=== PATIENT | female | born 1995 | race Caucasian/White ===

== ENCOUNTER 2023-12-17 16:32 | Outpatient (CLI) | payer BC ==
[2023-12-17 17:57] VITALS: BP 130/86; PULSE 117; RESP 18; TEMP 96.9
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
== END 2023-12-17 17:45 | disposition home or self-care (01) ==
LOC: FBPOP 16:32
PROVIDERS: ATTEND Obstetrics & Gynecology Obstetrics
DX: Z04.1 Encounter for examination and observation following transport accident (principal); O9A.213 Injury, poisoning and certain other consequences of external causes complicating pregnancy, third trimester; Z3A.38 38 weeks gestation of pregnancy; Z88.1 Allergy status to other antibiotic agents; V89.2XXA Person injured in unspecified motor-vehicle accident, traffic, initial encounter; Y92.410 Unspecified street and highway as the place of occurrence of the external cause
CPT/HCPCS: 59025; 99213

== ENCOUNTER 2024-01-03 12:11 | Inpatient (IN) | payer BC ==
[2024-01-03 13:23] LABS: Basophils # (A) 0.1 k/uL (0-0.2); Basophils % (A) 1 %; Eosinophils # (A) 0.2 k/uL (0-0.7); Eosinophils % (A) 2 %; HCT 36.2 % (34.0-46.0); HGB 12.4 gm/dL (11.4-16.0); Lymphocytes # (A) 2.2 k/uL (1.0-4.8); Lymphocytes % (A) 22 %; MCH 32.1 pg (25.0-35.0); MCHC 34.4 g/dL (31.0-37.0); MCV 93.4 fL (80.0-100.0); Mean Platelet Volume 12.1; Monocytes # (A) 0.4 k/uL (0-1.0); Monocytes % (A) 4 %; Neutrophils # (A) 6.9 k/uL (1.3-7.7); Neutrophils % (A) 70 %; Platelet Count 132 k/uL (150-450); RBC 3.87 m/uL (3.80-5.40); RDW 13.1 % (11.5-15.5)
[2024-01-03 13:24] LABS: Appearance,Urine Clear (Clear); Bilirubin,Urine Negative (Negative); Blood,Urine Negative (Negative); Color,Urine Yellow; Glucose,Urine (UA) Negative (Negative); Ketones,Urine Negative (Negative); Leukocyte Esterase,Urine Small (Negative); Mucus,Urine Occasional /hpf; Nitrite,Urine Negative (Negative); Protein,Urine Trace (Negative); RBC,Urine 1 /hpf (0-5); Specific Gravity,Urine 1.022 (1.001-1.035); Squamous Epithelial Cell,Urine 5 /hpf (0-4); Urobilinogen,Urine <2.0 mg/dL (<2.0); WBC,Urine 14 /hpf (0-5)
[2024-01-03 13:43] LABS: Creatinine,Urine Random 151.9 mg/dL
[2024-01-03 13:45] LABS: ALT 14 U/L (4-34); AST 21 U/L (14-36); African American GFR (CKD) >90 (>60 ml/min/1.73 sqM); Blood Urea Nitrogen 7 mg/dL (7-17); LDH 152 U/L (120-246); Non-African American GFR(CKD) >90 (>60 ml/min/1.73 sqM); Uric Acid 5.6 mg/dL (3.7-7.4)
--- NOTE | 2024-01-03 14:08 | P.MSEPDOC ---
Presenting Problems - Arrival Data Date of Arrival on Unit: 01/03/24 Time of Arrival on Unit: 12:10 Mode of Transport: Ambulatory - Complaint OB-Reason for Admission/Chief Complaint: Possible Onset of Labor Comment: contractions irregular for the past few hours and bloody mucous Medical History - Information : 1 Para: 0 Term: 0 : 0 Abortions: Spontaneous or Elective: 0 Number of Living Children: 0 - Gestational Age Gestational Age by BRADLEY (wks/days): 40 Weeks and 3 Days Review of Systems - Review of Systems Constitutional: No problems Breast: No problems ENT: No problems Cardiovascular: No problems Respiratory: No problems Gastrointestinal: No problems Genitourinary: No problems Musculoskeletal: No problems Neurological: No problems Skin: No problems Vital Signs - Temperature Temperature: 97.2 F Temperature Source: Temporal Artery Scan - Pulse Right Brachial Pulse Rate: 103 Pulse Assessment Method: Automatic Cuff - Respirations Respiratory Rate: 18 Oxygen Delivery Method: Room Air - Blood Pressure Right Arm Blood Pressure: 130/96 Blood Pressure Mean: 107 Blood Pressure Source: Automatic Cuff Medical Screen Scoring - Cervical Exam Dilation (cm): 0.5 Effacement (%): 50 Station: -3 Membranes: Intact - Uterine Contractions Frequency From (mins): 3 Frequency To (mins): 7 Duration From (seconds): 40 Duration To (seconds): 70 Intensity: Mild Resting: Soft to palpation - Assessment - Baby A Baseline FHR: 130 Heart Rate - NICHD Category: Category I (Normal) NST: Reactive Physician Notification - Physician Notified Physician Notified Date: 01/03/24 Physician Notified Time: 12:45 Physician: Rbeekah Thacker Order Received: Yes - Notification Comment Comment: Orders given to Homa Junior RN for labs Maternal Triage Index - Maternal Triage Index Presenting for scheduled procedure w/no complaint: No - Stat/Priority 1 Stat Priority 1: No - Urgent/Priority 2 Urgent Priority 2: No - Prompt/Priority 3 Prompt Priority 3: No - Non-Urgent/Priority 4 Non-Urgent Priority 4: Yes Criteria Met for Priority 4: contractions every 3-7 min and bloody mucous at home Disposition - Disposition OB Disposition: Discharge to home I agree with the RN Medical Screening Exam: Yes Physician's MSE Comment: I have neither seen nor examined the patient Case reviewed; plan agreed upon as documented in EMR&OBIX.: Yes Diagnosis: MATERNAL CARE FOR PROBLEM, UNSP, THIRD * DO NOT USE *
[2024-01-03] MEDS ORDERED: TRANEXAMIC 1,000 MG/100ML-NACL 1,000 MG in EMPTY BAG 1 BAG IV PRN (14:40)
[2024-01-03] MEDS ORDERED: miSOPROStoL 200 MCG TAB PO PRN (14:40)
[2024-01-03] MEDS ORDERED: OXYTOCIN 10 UNIT/ML 1 ML VIAL IM PRN (14:40)
[2024-01-03] MEDS ORDERED: LIDOCAINE 0.5% (PF) 5 MG/ML (50 ML SDV) SQ PRN (14:40)
[2024-01-03] MEDS ORDERED: TERBUTALINE 1 MG/ML VIAL SQ PRN (14:40)
[2024-01-03] MEDS ORDERED: METHYLERGONOVINE 0.2 MG/ML 1 ML AMP IM PRN (14:40)
[2024-01-03] MEDS ORDERED: CARBOPROST TROMETHAMINE 250 MCG/ML 1 ML AMP IM PRN (14:40)
--- NOTE | 2024-01-03 15:13 | P.HPOB ---
History of Present Illness H&P Date: 01/03/24 Chief Complaint: Contractions, leakage of fluid Ms. Nuñez is a 28 year old at at 40 weeks and 3 days with EDC of 12/31/2023 by LMP consistent with 8 week US who presents to L&D with regular, painful contractions. The patient was checked and found to be closed, thick, and high on two checks an hour apart. Her first blood pressure was also noted to be mildly elevated at 130/96. All subsequent blood pressures were normotensive. PIH labs were within normal limits and urine P:C was 0.03. After lab work had resulted, the patient had spontaneous rupture of membranes for clear amniotic fluid and an amnisure test was positive. The has been otherwise co mplicated by a maternal history of asthma for which she follows with pulmonology. The fetus is estimated to be 8 pounds and 12 ounces (approximately 75%ile) by a 36 week growth ultrasound. work-up: blood type A positive, antibody screen negative, rubella immune, VDRL non-reactive, HBsAg negative, HIV negative, HCV Ab negative, gonorrhea negative, chlamydia negative, 1 hour GTT wnl, GBS POSITIVE. s/p Tdap 11/05/2023. Past Medical History History of Any Multi-Drug Resistant Organisms: None Reported Smoking Status: Never smoker Medications and Allergies Home Medications Medication Instructions Recorded Confirmed Type Beclomethasone Dipropionate [Qvar 1 puff INHALATION DAILY 01/03/24 01/03/24 History 40 mcg Redihaler] Vit No.179/Iron/Folic 1 tab PO DAILY 01/03/24 01/03/24 History [ Tablet] Allergies Allergy/AdvReac Type Severity Reaction Status Date / Time azithromycin AdvReac Rash/Hives Verified 01/03/24 12:56 Exam Vital Signs Temp Pulse Resp BP 01/03/24 14:08 97.2 F L 103 H 18 130/96 01/03/24 12:52 97.2 F L 103 H 18 130/96 Intake and Output 01/02/24 01/03/24 01/03/24 22:59 06:59 14:59 Other: Weight 95.708 kg Focused physical exam is performed. This is a healthy-appearing in no apparent distress. Breathing is non-labored. Abdomen is gravid and non-tender. Cervical exam is closed, thick, and high. Clear amniotic fluid is noted. Extremities non-tender and non-edematous. heart tones are Category I and tocometer is graphing contractions every 2-5 minutes. Results Result Diagrams: 01/03/24 13:08 01/03/24 13:08 Abnormal Lab Results - Last 24 Hours (Table) 01/03/24 01/03/24 01/03/24 Range/Units 13:07 13:08 13:08 Plt Count 132 L (150-450) k/uL Creatinine 0.49 L (0.52-1.04) mg/dL Urine Protein Trace H (Negative) Ur Leukocyte Esterase Small H (Negative) Urine WBC 14 H (0-5) /hpf Ur Squamous Epith Cells 5 H (0-4) /hpf Urine Mucus Occasional H (None) /hpf Assessment and Plan Assessment: 28 year old at 40 weeks and 3 days in labor with spontaneous rupture of membranes Plan: Admit, NPO, Penicillin G for GBS positive status, pitocin titrated per protocol, epidural prn, continuous EFM and tocometer, close monitoring of patient. Time with Patient: Less than 30
[2024-01-03] MEDS: PENICILLIN G POTASSIUM 5,000,000 UNIT in DEXTROSE 5% IN WATER 100 ML IVPB STA (15:22)
[2024-01-03] MEDS: LACTATED RINGERS 1,000 ML IV SCH (15:22)
[2024-01-03] MEDS: OXYTOCIN 30 UNITS/500 ML NS 30 UNIT in SALINE 1 500ML.BAG IV SCH (15:30)
[2024-01-03] MEDS ORDERED: FLUTICASONE 50MCG/SPRAY NASAL 16GM EA NOSTRIL PRN (17:40)
[2024-01-03] MEDS: PENICILLIN G POTASSIUM 2,500,000 UNIT in DEXTROSE 5% IN WATER 100 ML IVPB SCH (19:32)
[2024-01-03] MEDS: NALBUPHINE 10 MG/ML (10 ML MDV) IV PRN (20:08)
[2024-01-04] MEDS ORDERED: ROPIVACAINE 5 MG/ML 30 ML VIAL ONE (04:38)
[2024-01-04] MEDS ORDERED: SODIUM CHLORIDE 0.9% 250 ML BAG ONE (04:38)
[2024-01-04] MEDS ORDERED: fentaNYL (PF) 50 MCG/ML 5 ML AMP ONE (04:38)
[2024-01-04] MEDS ORDERED: OXYTOCIN 10 UNIT/ML 1 ML VIAL IM PRN (14:59)
[2024-01-04] MEDS ORDERED: METHYLERGONOVINE 0.2 MG/ML 1 ML AMP IM PRN (14:59)
[2024-01-04] MEDS ORDERED: TRANEXAMIC 1,000 MG/100ML-NACL 1,000 MG in EMPTY BAG 1 BAG IV PRN (14:59)
[2024-01-04] MEDS ORDERED: miSOPROStoL 200 MCG TAB PO PRN (14:59)
[2024-01-04] MEDS ORDERED: CARBOPROST TROMETHAMINE 250 MCG/ML 1 ML AMP IM PRN (14:59)
[2024-01-04] MEDS: CITRIC ACID-SODIUM CITRATE 15 ML CUP PO ONE (15:42)
[2024-01-04] MEDS ORDERED: METHYLERGONOVINE 0.2 MG/ML 1 ML AMP ONE (16:21)
[2024-01-04] MEDS ORDERED: ONDANSETRON 4 MG/2 ML VIAL ONE (16:21)
[2024-01-04] MEDS ORDERED: PROPOFOL 10 MG/ML 20 ML VIAL IV ONE (16:21)
[2024-01-04] MEDS ORDERED: fentaNYL (PF) 50 MCG/ML 2 ML AMP ONE (16:21)
[2024-01-04] MEDS ORDERED: KETOROLAC 15 MG/ML 1 ML VIAL ONE (16:21)
[2024-01-04] MEDS ORDERED: OXYTOCIN 30 UNITS/500 ML NS BAG IV ONE (16:21)
[2024-01-04] MEDS ORDERED: SUCCINYLCHOLINE CHLORIDE 200 MG/10 ML VIAL IV ONE (16:21)
--- NOTE | 2024-01-04 17:47 | P.OP ---
Date of Procedure: 01/04/24 Preoperative Diagnosis: #1. 40-4/7 weeks, labor #2. Prolonged rupture of membranes #3. Arrest of dilation and descent in the active phase of labor #4. Maternal exhaustion Postoperative Diagnosis: Same Procedure(s) Performed: #1. Primary low-transverse section Anesthesia: GETA (Failed epidural bolus) Surgeon: Marty Royal Football Scout #1: Rebekah Thacker Estimated Blood Loss (ml): 1,300 IV fluids (ml): 1,000 Urine output (ml): 200 Pathology: other (Placenta) Condition: stable Disposition: floor Operative Findings: Preoperatively, the patient had had rupture of membranes for greater than 24 hours. Antibiotic prophylaxis was started empirically given her remoteness from delivery. She had had Pitocin augmentation beginning late last evening and ultimately progressed to 6 cm of dilation this morning with the vertex and presentation -3 station. She remained at 6 cm with an adequate contraction pattern for approximately 8 hours with no change in dilation or descent. She additionally was exhausted from the process and requested to proceed to primary low-transverse section. She was taken to the operating room where she was delivered of a viable 8 pound 7 ounce baby girl with Apgars of 9 at 1 minute and 9 at 5 minutes delivered in the occiput anterior position. The placenta was delivered manually, intact, and grossly normal with a grossly normal three- vessel cord. The uterus, tubes, and ovaries were entirely normal to inspection. There was a moderate amount of blood loss secondary to uterine atony which was ultimately made better after a dose of Methergine. Description of Procedure: The patient was prepped and draped in usual fashion after epidural anesthesia was bolused by the anesthesiologist. The epidural was tested on multiple times over the course of approximately 20 to 30 minutes with inadequate analgesia and the decision was made to proceed with general endotracheal anesthesia. After establishing the general endotracheal anesthesia, a Pfannenstiel incision was made and extended into the abdominal cavity without difficulty. The bladder peritoneum was significantly distal to the intended site of incision was left intact. A 2 cm incision was made the transverse plane of the lower uterine segment after the uterus at which time lightly meconium stained fluid was noted which had not been noted earlier. The head was delivered up and through the incision where the nose and mouth were thoroughly suctioned. The cord was doubly clamped, cut, and the passed for resuscitative measures with weight and Apgars as noted above. A segment of cord was doubly clamped, cut, and set aside should cord gases become necessary. The placenta was delivered manually and intact as noted above. Uterus was exteriorized and the anterior cavity swept of any remaining placental or membranous fragments. The margins of the uterine incision were grasped with Huff clamps and the incision was closed in 2 layers. There was a moderate amount of uterine atony occurring at this time leading to a moderate amount of blood loss which was ultimately treated with Methergine effectively. The 2 layer closure consisted of a first layer of 0 chromic catgut in a running locking stitch followed by a running imbricating stitch of 0 chromic catgut, each from margin to margin. The posterior cul-de-sac was suctioned with a guard followed by laparotomy sponge and the uterus was replaced within the abdominal cavity.. The gutters were swept of any remaining blood, fluid, or clot. Examination of the surgical field demonstrated some bleeding at the right ankle which was made hemostatic with a single [id number] stitch of 0 chromic catgut. Any small points of bleeding were made hemostatic with the Bovie. Once hemostasis was established, the parietal peritoneum was loosely reapproximated and the layer of muscles examined and found to be hemostatic. The fascia was closed with 2 running stitches of 0 Vicryl proceeding from the lateral margins to the midpoint. The subcutaneous tissues were irrigated, made hemostatic with the Bovie, and reapproximated with a running stitch of 3-0 plain catgut. The skin was reapproximated with a running subcuticular stitch of 4-0 Vicryl followed by half-inch Steri-Strips placed with Mastisol. Quantitative blood loss for the case was 1300 mL. There were no complications aside from the short-term intraoperative atony leading to some excessive blood loss at the time. All sponge, instrument, and needle counts were correct. The patient tolerated the procedure well and proceeded to the recovery room in stable condition. Both mother and are resting comfortably in recovery.
[2024-01-04] MEDS ORDERED: diphenhydrAMINE 50 MG/ML 1 ML VIAL IVP PRN ×2 (17:53)
[2024-01-04] MEDS ORDERED: METOCLOPRAMIDE 5 MG/ML 2 ML VIAL IVP PRN (17:53)
[2024-01-04] MEDS ORDERED: KETOROLAC 15 MG/ML 1 ML VIAL IVP PRN (17:53)
[2024-01-04] MEDS ORDERED: diphenhydrAMINE 50 MG CAP PO PRN (17:53)
[2024-01-04] MEDS ORDERED: ZOLPIDEM 5 MG TAB PO PRN (17:53)
[2024-01-04] MEDS ORDERED: ONDANSETRON 4 MG/2 ML VIAL IVP PRN (17:53)
[2024-01-04] MEDS ORDERED: NALOXONE 0.4 MG/ML 1 ML VIAL IV PRN (17:53)
[2024-01-04] MEDS ORDERED: LANOLIN CREAM 1 GM TUBE TOPICAL PRN (17:53)
[2024-01-04] MEDS ORDERED: diphenhydrAMINE 25 MG CAP PO PRN (17:53)
[2024-01-04] MEDS ORDERED: SIMETHICONE 80 MG CHEWABLE PO PRN (17:53)
[2024-01-04] MEDS ORDERED: OXYTOCIN 30 UNITS/500 ML NS 30 UNIT in SALINE 1 500ML.BAG IV SCH (18:00)
[2024-01-04] MEDS: ALBUTEROL HFA INHALER INHALATION PRN (18:15)
[2024-01-04] MEDS: SENNOSIDES-DOCUSATE SODIUM 1 EACH TAB PO SCH (20:03)
[2024-01-04] MEDS: ACETAMINOPHEN TAB 500 MG TAB PO SCH (21:06)
[2024-01-04] MEDS: LACTATED RINGERS 1,000 ML IV SCH (21:07)
[2024-01-05] MEDS: IBUPROFEN 600 MG TAB PO SCH (00:49)
[2024-01-05 08:19] LABS: Basophils % (A) 0 %; Eosinophils # (A) 0.1 k/uL (0-0.7); Eosinophils % (A) 0 %; HCT 29.9 % (34.0-46.0); HGB 10.1 gm/dL (11.4-16.0); Lymphocytes # (A) 1.6 k/uL (1.0-4.8); Lymphocytes % (A) 13 %; MCH 32.1 pg (25.0-35.0); MCHC 33.9 g/dL (31.0-37.0); MCV 94.6 fL (80.0-100.0); Mean Platelet Volume 11.7; Monocytes # (A) 0.6 k/uL (0-1.0); Monocytes % (A) 5 %; Neutrophils % (A) 80 %; Platelet Count 110 k/uL (150-450); RBC 3.16 m/uL (3.80-5.40); RDW 13.2 % (11.5-15.5); WBC 12.4 k/uL (3.8-10.6)
--- NOTE | 2024-01-05 08:42 | P.PN ---
Progress Note - Text Progress Note Date: 01/05/24 (7879) Anesthesia Postop day 1 Subjective: Status Post section with Duramorph. Patient seen and examined. Doing well without complaint. VAS 3 out of 10. No nausea vomiting or pruritus. Denies fever. Gross lower extremity strength intact. Without apparent anesthetic complications. Objective: Vital signs reviewed Heart: Regular Rate Lungs: Good chest excursion Abdomen: Appears nondistended Assessment: Status post section with Duramorph postop day 1 Plan: 1. Continue current care with your medical management. Anticipated end to the duration of the Duramorph around surgery time today. You may see increased pain needs around this time. 2. This note was dictated using [employer]ent software. Please be advised there is a potential for misspellings or errors in radiology transcriptionist.
--- NOTE | 2024-01-05 08:48 | P.PNOBGPC ---
Subjective - Subjective Patient reports: Reports appetite normal, Reports voiding normally, Reports pain well controlled, Reports ambulating normally : doing well, nursing well Objective - Vital Signs Latest vital signs: Vital Signs Temp Pulse Resp BP Pulse Ox 01/05/24 00:00 98 16 126/82 97 01/04/24 21:17 102 H 16 124/82 98 01/04/24 21:02 114 H 16 125/81 98 01/04/24 20:47 103 H 16 129/84 98 01/04/24 20:32 109 H 16 141/89 98 01/04/24 19:53 101 H 16 127/84 98 01/04/24 19:48 110 H 16 133/80 99 01/04/24 19:33 113 H 16 134/84 99 01/04/24 18:54 100 14 150/87 01/04/24 18:37 117 H 16 129/79 99 01/04/24 18:22 95 14 126/82 98 01/04/24 18:07 93 16 117/85 99 01/04/24 17:52 97.5 F L 106 H 14 119/85 99 Intake and Output 01/04/24 01/05/24 01/05/24 22:59 06:59 14:59 Output Total 1468 500 700 Balance -1468 -500 -700 Output: Urine 500 700 Uretheral (Malik) 100 Output, Quantitative 1468 Blood Loss Other: Voiding Method Indwelling Catheter - Exam Extremities: Present: normal Abdomen: Present: normal appearance, soft. Absent: distention, tenderness Incision: Present: normal, dry, intact Uterus: Present: normal, firm (The uterine fundus is tonic and minimally tender at the umbilicus.) - Labs Labs: Microbiology - Last 24 Hours (Table) 01/03/24 13:07 Urine Culture - Final Urine,Voided Assessment and Plan (1) S/P section Current Visit: Yes Status: Acute Code(s): Z98.891 - HISTORY OF UTERINE SCAR FROM PREVIOUS SURGERY SNOMED Code(s): 862883891 Plan: Continue routine and postoperative care. CBC is pending this morning but the patient has vital signs that are stable. I have encouraged her to ambulate in the hallways routinely. She is now tolerating a regular diet. I would anticipate discharge home tomorrow pending no complications.
[2024-01-05 12:18] LABS: Large Platelets Present; RBC Morphology Normal
--- NOTE | 2024-01-06 08:29 | P.PNOBGPC ---
Subjective - Subjective Patient reports: Reports appetite normal, Reports voiding normally, Reports pain well controlled, Reports ambulating normally : doing well, nursing well Objective - Vital Signs Latest vital signs: Vital Signs Temp Pulse Resp BP Pulse Ox 01/05/24 23:27 97.9 F 102 H 14 110/77 01/05/24 16:00 98.4 F 105 H 15 116/76 100 01/05/24 12:00 98 F 100 14 117/78 100 - Exam Extremities: Present: normal Abdomen: Present: normal appearance, soft. Absent: distention, tenderness Incision: Present: normal, dry, intact Uterus: Present: normal, firm - Labs Labs: Abnormal Lab Results - Last 24 Hours (Table) 01/05/24 Range/Units 07:30 WBC 12.4 H (3.8-10.6) k/uL RBC 3.16 L (3.80-5.40) m/uL Hgb 10.1 L (11.4-16.0) gm/dL Hct 29.9 L (34.0-46.0) % Plt Count 110 L (150-450) k/uL Neutrophils # 10.0 H (1.3-7.7) k/uL Assessment and Plan (1) S/P section Current Visit: Yes Status: Acute Code(s): Z98.891 - HISTORY OF UTERINE SCAR FROM PREVIOUS SURGERY SNOMED Code(s): 815875342 Plan: Continue routine and postoperative care. I have encouraged her to ambulate in the hallways routinely. She is tolerating a regular diet. I would anticipate discharge home tomorrow pending no complications.
--- NOTE | 2024-01-07 08:51 | P.DS ---
Providers Date of admission: 01/03/24 14:33 Expected date of discharge: 01/07/24 Attending physician: Marty Royal Primary care physician: Stated None - Discharge Diagnosis(es) (1) S/P section Current Visit: Yes Status: Acute Hospital Course: The patient is a 28-year-old 1 para 0 admitted at 40-3/7 weeks by good dating parameters. She is admitted with documented spontaneous rupture of membranes in early labor with all signs reassuring. Her has been otherwise entirely uncomplicated and group B strep status is positive. On labor and delivery, she had antibiotic prophylaxis started as well as Pitocin augmentation. She was found at admission to be closed and thick. She had Pitocin augmentation for 24 hours and eventually had an epidural catheter placed for analgesia. She ultimately progressed to approximately 6 cm with the fetus remaining in the high station. She remained at 6 cm for approximately 6 to 8 hours and was ultimately diagnosed with arrest of dilation and descent. She was taken to the operating room where she was delivered of a viable 8 pound 7 ounce baby girl with Apgars of 9 at 1 minute and 9 at 5 minutes. Her and postoperative course was unremarkable with vital signs remaining stable and her temperature was afebrile throughout. She was deemed stable for discharge on the morning of postoperative day #3 and was discharged home to follow-up in the office in 2 weeks for an incision check in 6 weeks routinely. Discharge instructions included calling for any significantly increased bleeding or foul- smelling lochia, significantly increased fever or abdominal pain, perineal complaints, breast complaints, incisional complaints, or anything else that concerned her. She was additionally instructed to have nothing in the vagina for at least 6 weeks time to include intercourse and to abstain from any heavy lifting over the same period of time. She was lastly instructed to do no driving until off of all pain medications or 2 weeks time, whichever came first. She understood her instructions and agrees to follow-up as noted above. Discharge medications included continued vitamins as she has opted to breast-feed. She was otherwise to use [id number] analgesic pain medications but was provided with a prescription for Tylenol 3, 1-2 p.o. every 6 hours as needed pain, #20 dispensed with no refills. Maternal blood type is a positive and rubella status is immune. Discharge hemoglobin and hematocrit were 10.1 and 29.9 respectively. Procedures: #1. Antibiotic prophylaxis #2. Pitocin augmentation #3. Epidural analgesia #4. Primary low-transverse section Patient Condition at Discharge: Stable Plan - Discharge Summary New Discharge Prescriptions: No Action Vit No.179/Iron/Folic [ Tablet] 1 tab PO DAILY Beclomethasone Dipropionate [Qvar 40 mcg Redihaler] 1 puff INHALATION DAILY Discharge Medication List Beclomethasone Dipropionate [Qvar 40 mcg Redihaler] 1 puff INHALATION DAILY 01/03/24 [History] Vit No.179/Iron/Folic [ Tablet] 1 tab PO DAILY 01/03/24 [History] Follow up Appointment(s)/Referral(s): Marty Royal MD [STAFF PHYSICIAN] - 2 Weeks Discharge Disposition: HOME SELF-CARE
[2024-01-07 09:03] VITALS: BP 125/87; PULSE 98; RESP 16; TEMP 97.7
== END 2024-01-07 15:25 | disposition home or self-care (01) | DRG 787 ==
LOC: FBPOP 12:11 → 4FBP 14:33
PROVIDERS: ADMIT Obstetrics & Gynecology; ATTEND Obstetrics & Gynecology
PROC: 10D00Z1 Extraction of Products of Conception, Low, Open Approach (ICD-10-PCS; principal; 2024-01-04 16:30)
DX: O42.92 Full-term premature rupture of membranes, unspecified as to length of time between rupture and onset of labor (principal); O72.2 Delayed and secondary postpartum hemorrhage; O32.4XX0 Maternal care for high head at term, not applicable or unspecified; Z37.0 Single live birth; O48.0 Post-term pregnancy; O62.1 Secondary uterine inertia; O75.81 Maternal exhaustion complicating labor and delivery; O99.824 Streptococcus B carrier state complicating childbirth; Z3A.40 40 weeks gestation of pregnancy
CPT/HCPCS: 59025; 81001; 82565; 82570; 83615; 84156; 84450; 84460; 84520; 84550; 85025; 86850; 86900; 86901; 87086; 88307; 94640; 99213